=== PATIENT | male | born 1955 | race Caucasian/White ===

== ENCOUNTER → 2016-11-19 | Outpatient (CLI) | payer OTHER | LOC: BRMIMAGING 10:16 | PROVIDERS: ATTEND Specialist | DX: S59.901A Unspecified injury of right elbow, initial encounter (principal) | CPT/HCPCS: 73080-PO ==

== ENCOUNTER → 2016-12-29 | Outpatient (CLI) | payer OTHER | LOC: BRMIMAGING 10:08 | PROVIDERS: ATTEND Internal Medicine | DX: S50.01XD Contusion of right elbow, subsequent encounter (principal) | CPT/HCPCS: 73080-PO ==